=== PATIENT | female | born 1960 | race Caucasian/White ===

== ENCOUNTER 2019-10-25 16:18 | Emergency (ER) | payer MEDICARE, MEDICAID, SELFPAY ==
[2019-10-25] VITALS (14 sets, daily range): BP systolic 139–180; BP diastolic 85–101; PULSE 70–97; RESP 18–20; TEMP 37.1; O2SAT 93–98; BMI 32.4
--- NOTE | 2019-10-25 16:57 | XRR_ITS ---
PROCEDURE INFORMATION: Exam: XR Right Hip with Pelvis when Performed Exam date and time: 10/25/2019 5:00 PM Age: 59 years old Clinical indication: Injury or trauma; Fall; Initial encounter; Blunt trauma (contusions or hematomas); Right; Hip; Additional info: Fall, hip pain TECHNIQUE: Imaging protocol: XR Right hip with pelvis when performed. Views: 1 view. COMPARISON: CT abdomen pelvis w con* [id number] 06/19/2019 12:02 AM FINDINGS: Bones/joints: There is a PLIF at L5-S1. No fracture or dislocation is identified. Soft tissues: Unremarkable. XR/XR hip RT 2-3V wo/w pel* [id number] IMPRESSION: No fracture is identified
--- NOTE | 2019-10-25 17:07 | PC.NURSE ---
xray at bedside
[2019-10-25] MEDS: morphine 4 mg/mL SDV 1 mL IVP (17:23)
[2019-10-25] MEDS: ondansetron 2 mg/ML SDV 2 mL 4 MG IVP (17:23)
[2019-10-25 17:40] LABS: Basophils # 0.1 10^3/uL (0.0-0.1); Basophils % 0.5 %; Eosinophils # 0.1 10^3/uL (0.0-0.8); Eosinophils % 1.5 %; Hematocrit 39.5 % (37.0-47.0); Hemoglobin 13.4 g/dL (11.5-15.3); Lymphocytes # 2.6 10^3/uL (0.8-4.8); Lymphocytes % 27.2 %; Mean Corpuscular HGB Conc 33.9 g/dL (30.0-36.0); Mean Corpuscular Hemoglobin 28.6 pg (28.0-34.0); Mean Corpuscular Volume 84.2 fL (81-99); Mean Platelet Volume 10.6 fL (7.4-10.4); Monocytes # 0.5 10^3/uL (0.2-0.9); Monocytes % 4.9 %; Neutrophils # 6.3 10^3/uL (1.8-7.7); Neutrophils % 65.5 %; Nucleated Red Blood Cells % 0 %; Platelet Count 225 10^3/cmm (130-400); Red Blood Count 4.69 10^6/uL (4.1-5.3); Red Cell Distribution Width 13.2 % (12.1-15.1); White Blood Count 9.6 10^3/uL (4.0-10.0)
[2019-10-25 18:02] LABS: Anion Gap 15.7 (5-19); Blood Urea Nitrogen 8 mg/dL (6-20); Calcium 9.5 mg/Dl (8.6-10.0); Carbon Dioxide 26 mmol/L (22-29); Chloride 98 mmol/L (98-107); Glomerular Filtration Rate 73.9 mL/min (90-130); Glucose 171 mg/dL (74-109); Potassium 3.7 mmol/L (3.5-5.1); Sodium 136 mmol/L (136-145)
--- NOTE | 2019-12-10 11:54 | W.ED.FALL ---
HPI - Fall General: Chief Complaint: Fall Stated Complaint: fall, hip and back pain Time Seen by Provider: 10/25/19 16:57 History of Present Illness: HPI Narrative: 59-year-old female seen for fall. She fell this morning prior to arrival complaining of right knee and right shoulder pain although she is moving her right shoulder without any difficulty. Her bigger concern is her knee. She does take hydrocodone at home for fibromyalgia generalized osteoarthritis. Did not strike her head no loss of consciousness. Associated symptoms-after fall: Denies abdominal pain or chest pain Review of Systems Const: Denies: fever, chills, body aches, change in appetite, fatigue or malaise ENMT: Denies: throat pain, ear pain, nasal discharge or nasal congestion Card: Denies: chest pain, edema, shortness of breath on exertion or shortness of breath when lying down Resp: Denies: shortness of breath, productive cough or non-productive cough GI: Denies: abdominal pain, nausea, vomiting, vomiting blood, coffee grounds in vomit, diarrhea, constipation, bloating, blood in stool or black tarry stool : Denies: flank pain, difficulty urinating, painful urination, urinary frequency or urinary urgency Skin/Breast: Denies: rash or itching PFSH ED PFSH: Family History Family/Other Cancer Colon - Father Breast - Maternal Aunt Denies family history of Diabetes CAD (coronary artery disease) Hypertension Stroke Social History Smoking and tobacco status: current every day smoker cigarettes Packs smoked per day: 1 Alcohol intake: never Marital status: Current occupational status: employed Physical Exam Const: COMMON NORMALS: no apparent distress GENERAL APPEARANCE: cooperative and comfortable ORIENTATION/CONSCIOUSNESS: Yes awake, Yes oriented to person, Yes oriented to place and Yes oriented to time HENMT: COMMON NORMALS: normocephalic, head/scalp atraumatic, hearing grossly normal bilaterally, external ears normal, EAC's normal, TM's normal bilaterally, nasal mucous membranes and turbinates normal, moist oral mucous membranes and oropharynx normal HEAD & SCALP: normocephalic and atraumatic NOSE: nasal mucous membranes and turbinates normal EXTERNAL EAR: Yes external ears normal EXTERNAL AUDITORY CANAL: EAC's normal TYMPANIC MEMBRANE: TM's normal bilaterally Eye: COMMON NORMALS: PERRL, EOMs intact bilaterally, conjunctivae normal and no scleral icterus CONJUNCTIVA: Yes conjunctivae normal PUPIL: Yes PERRL Neck/C-Spine: COMMON NORMALS: full ROM, no lymphadenopathy, supple and no JVD Lymph: LYMPHATIC: no lymphadenopathy noted and no lymphedema noted Resp: COMMON NORMALS: normal respiratory effort, no retractions, no use of accessory muscles and clear to auscultation bilaterally AUSCULTATION: clear to auscultation bilaterally Cardio: COMMON NORMALS: no JVD, regular rate, regular rhythm and no murmurs RATE: regular rate RHYTHM: regular rhythm GI: COMMON NORMALS: soft to palpation and no hepatosplenomegaly AUSCULTATION: Yes normoactive bowel sounds PALPATION: Yes soft, No tender, No guarding and Yes no hepatosplenomegaly Extremity: COMMON NORMALS: normal to inspection, normal capillary refill, no clubbing, cyanosis or edema, no calf tenderness and no pedal edema OTHER: Patient has mild discomfort with palpation of the greater trochanter after x-ray no pain with internal X rotation of the right hip. No deformity. Neuro: SENSORIUM/ORIENTATION: Yes oriented to person, Yes oriented to place and Yes oriented to time Skin: COMMON NORMALS: no rashes or lesions noted GENERAL SKIN EXAM: no rashes or lesions noted Course Vital Signs: Vital signs: Vital Signs Temperature 98.8 F 10/25/19 16:44 Pulse Rate 70 10/25/19 18:18 Respiratory Rate 18 10/25/19 18:18 Blood Pressure 141/88 10/25/19 18:18 Pulse Oximetry 97 10/25/19 18:18 MDM - Fall Lab Data: Labs: Lab Results 10/25/19 10/25/19 Range/Units 17:19 17:19 WBC 9.6 (4.0-10.0) 10^3/ uL RBC 4.69 (4.1-5.3) 10^6/u L Hgb 13.4 (11.5-15.3) g/dL Hct 39.5 (37.0-47.0) % MCV 84.2 (81-99) fL MCH 28.6 (28.0-34.0) pg MCHC 33.9 (30.0-36.0) g/dL RDW 13.2 (12.1-15.1) % Plt Count 225 (130-400) 10^3/c mm MPV 10.6 H (7.4-10.4) fL Neut % (Auto) 65.5 % Lymph % (Auto) 27.2 % [place] % (Auto) 4.9 % Eos % (Auto) 1.5 % Baso % (Auto) 0.5 % Neut # (Auto) 6.3 (1.8-7.7) 10^3/u L Lymph # (Auto) 2.6 (0.8-4.8) 10^3/u L [place] # (Auto) 0.5 (0.2-0.9) 10^3/u L Eos # (Auto) 0.1 (0.0-0.8) 10^3/u L Baso # (Auto) 0.1 (0.0-0.1) 10^3/u L Nucleated RBC % (a uto) 0 % Nucleated RBCs # 0.0 /100WBC Sodium 136 (136-145) mmol/L Potassium 3.7 (3.5-5.1) mmol/L Chloride 98 (98-107) mmol/L Carbon Dioxide 26 (22-29) mmol/L Anion Gap 15.7 (5-19) BUN 8 (6-20) mg/dL Creatinine 0.8 (0.5-0.9) mg/dL GFR Calculation 73.9 L (90-130) mL/min Glucose 171 H (74-109) mg/dL Calcium 9.5 (8.6-10.0) mg/Dl Discharge Plan Discharge Patient Disposition: Home, Self-Care Clinical Impression: Fall Condition: Stable Prescriptions: New diclofenac sodium 75 mg tablet,delayed release (DR/EC) 75 mg PO Q12H PRN (Reason: pain) Qty: 20 RF: 0 No Action fluoxetine 40 mg capsule 40 mg PO QAM RF: 0 albuterol sulfate [Ventolin HFA] 90 mcg/actuation HFA aerosol inhaler 2 puff INHALATION Q6H PRNRF: 0 [place] 30 gm PO ONCE RF: 0 oxycodone 10 mg tablet 10 mg PO TID PRNRF: 0 hydrocodone bitartrate 10 mg capsule, oral only, ER 12hr 10 mg PO TID RF: 0 aspirin 325 mg tablet,delayed release (DR/EC) 325 mg PO BID RF: 0 trazodone 150 mg tablet 150 mg PO ONCE RF: 0 Referrals: Laina Pepper DO [Primary Care Provider] - Discharge Diet: Advance as tolerated Discharge Activity: Resume usual activity Patient Instructions: Back Pain, Joint Pain, Musculoskeletal Pain (ED), Pain Management, Fall Prevention Discharge Date/Time: 10/25/19 18:41 Coding Level of Care Code ED [employer] for Chg Fwd Exam Comprehensive
== END 2019-10-25 18:41 | disposition home or self-care (01) ==
PROVIDERS: Emergency Provider Family Medicine; Family Provider Family Medicine; PCP Family Medicine
DX: M25.561 Pain in right knee (principal); M25.511 Pain in right shoulder; M79.7 Fibromyalgia; F17.210 Nicotine dependence, cigarettes, uncomplicated
CPT/HCPCS: 36415; 73502; 80048; 85025; 96374; 99281; J2270; J2405

== ENCOUNTER → 2019-11-03 13:25 | Outpatient (BNVA) | payer MEDICARE, MEDICAID, SELFPAY | PROVIDERS: Family Provider Family Medicine; PCP Family Medicine; Referring Provider Family Medicine; Visit Provider Specialist | DX: M54.5 Low back pain (principal); G89.29 Other chronic pain; F11.23 Opioid dependence with withdrawal; F17.210 Nicotine dependence, cigarettes, uncomplicated | CPT/HCPCS: 99204; 99214 ==

== ENCOUNTER 2022-01-19 15:34 | Emergency (ER) | payer MEDICARE, MEDICAID, SELFPAY ==
[2022-01-19 15:38] VITALS: BP 155/103; PULSE 95; RESP 16; O2SAT 94; BMI 29.2
--- NOTE | 2022-01-19 15:59 | ED_ITS ---
Documented by User: Nathen Zapata DO 01/23/22 10:02 HPI - Fall General: Chief Complaint: Fall Stated Complaint: FALL Time Seen by Provider: 01/19/22 15:57 Source: patient Mode of arrival: ambulatory History of Present Illness: 61-year-old female presents emergency room with multiple ground-level falls over the last week. She is complaining of weakness particularly in the left arm and leg that began 3 to 4 days ago. She has left lateral rib pain as well. She had some vision and hearing changes although she has difficult time quantifying this. She has no known history of previous stroke. Patient is on Suboxone at this time. She has some peripheral neuropathy as well. She denies chest pain or shortness of breath. MD complaint: fall Onset (ago): week(s) (1) Fall from: standing Fall witnessed: no Place fall occurred: home Loss of consciousness: None Prolonged down time: no Symptoms prior to fall: lightheadedness and dizziness Location of injury: chest (Left ribs) Associated symptoms-after fall: Reports chest pain, difficulty walking and weakness; Denies abdominal pain, confusion, headache(s), hematuria, lightheadedness, neck pain, numbness, short of breath or vertigo Review of Systems Const: Denies: fever(s), chills, body aches, change in appetite, fatigue or malaise ENMT: Denies: throat pain, ear or mastoid pain, nasal discharge or nasal congestion Card: Reports: chest pain; Denies: lightheadedness Resp: Denies: dyspnea, productive cough or non-productive cough GI: Denies: abdominal pain : Denies: flank pain, difficulty voiding, dysuria, urinary frequency, uri nary urgency or hematuria Musc: Denies: neck pain, back pain or extremity pain Skin/Breast: Denies: rash or pruritus Neuro: Reports: difficulty walking; Denies: headache(s), vertigo or confusion PFSH ED PFSH: Medical History (Updated 01/23/22 @ 09:57 by Nathen Zapata DO) Alcoholism /alcohol abuse Asymptomatic microscopic hematuria Calculus of kidney Chronic back pain Diabetes Opiate addiction Surgical History (Updated 01/23/22 @ 09:57 by Nathen Zapata DO) H/O section H/O tubal ligation S/P cholecystectomy Family History Family/Other Cancer Colon - Father Breast - Maternal Aunt Denies family history of Diabetes CAD (coronary artery disease) Hypertension Stroke Social History Smoking and tobacco status: current every day smoker cigarettes Packs smoked per day: 1 Alcohol intake: never Marital status: Current occupational status: employed Physical Exam Const: COMMON NORMALS: no acute distress GENERAL APPEARANCE: cooperative and comfortable ORIENTATION/CONSCIOUSNESS: Yes awake, Yes oriented to person, Yes oriented to place and Yes oriented to time HENMT: COMMON NORMALS: normocephalic, atraumatic and hearing grossly normal bilaterally HEAD & SCALP: normocephalic and atraumatic Neck/C-Spine: COMMON NORMALS: no JVD Resp: COMMON NORMALS: normal respiratory effort, No retractions, No use of accessory muscles and clear to auscultation bilaterally AUSCULTATION: clear to auscultation bilaterally Cardio: COMMON NORMALS: no JVD, regular rate, regular rhythm and No murmurs present (Cardio) RATE: regular rate RHYTHM: regular rhythm GI: COMMON NORMALS: Soft to palpation and No hepatosplenomegaly present AUSCULTATION: Yes normoactive bowel sounds PALPATION: Yes Soft to palpation, No Tenderness to palpation present (GI), No Guarding due to palpation present (GI) and Yes No hepatosplenomegaly present Extremity: COMMON NORMALS: normal to inspection, capillary refill normal, no clubbing, cyanosis or edema, no calf tenderness and no pedal edema Neuro: SENSORIUM/ORIENTATION: Yes oriented to person, Yes oriented to place and Yes oriented to time OTHER: Very subtle left-sided weakness compared to right. Noted in science tutor strength and leg raising while patient can raise the right leg and hold it up for 5 seconds she does seem to have more difficulty with the right than the left. Skin: COMMON NORMALS: no rashes or lesions noted GENERAL SKIN EXAM: no rashes or lesions noted Course Vital Signs: Vital signs: Vital Signs Pulse Rate 82 01/19/22 19:43 Respiratory Rate 17 01/19/22 19:43 Blood Pressure 168/91 01/19/22 19:43 Pulse Oximetry 94 01/19/22 19:43 MDM - Fall Medical Decision Making Care signed out to Dr. Penny at change of shift. See final notes for diagnosis and disposition. Patient care handoff received from Dr. Zapata pending completion of ED evaluation. Laboratory studies notable for unremarkable hematologic and metabolic panel, no obvious cause of patient's symptoms. Head CT without acute intracranial abnormality. Discussed results of ED evaluation with the patient, she expresses concern over her various medical problems however does have reasonable follow-up plan as scheduled. Given the duration of symptoms and findings on head CT the exact etiology of patient's symptoms are unclear however do not appear to need admission at this time. Satisfactory for outpatient management. Paramjit Penny MD Emergency Medicine Medical Records I reviewed the patient's medical records. Lab Data I reviewed the patient's lab results. : 01/19/22 15:57 01/19/22 15:[address] 01/19/22 16:21 IMPRESSION: No acute intracranial abnormality. Laboratory Results WBC 9.3 10^3/uL (4.0-10.0) 01/19/22 15:57 RBC 4.68 10^6/uL (4.1-5.3) 01/19/22 15:57 Hgb 13.9 g/dL (11.5-15.3) 01/19/22 15:57 Hct 41.9 % (37.0-47.0) 01/19/22 15:57 MCV 89.5 fl (81-99) 01/19/22 15:57 MCH 29.7 pg (28.0-34.0) 01/19/22 15:57 MCHC 33.2 g/dL (30.0-36.0) 01/19/22 15:57 RDW 13.2 % (12.1-15.1) 01/19/22 15:57 Plt Count 196 10^3/cmm (130-400) 01/19/22 15:57 MPV 10.1 fL (7.4-10.4) 01/19/22 15:57 Neut % (Auto) 72.4 % 01/19/22 15:57 Lymph % (Auto) 20.6 % 01/19/22 15:57 [place] % (Auto) 4.3 % 01/19/22 15:57 Eos % (Auto) 1.9 % 01/19/22 15:57 Baso % (Auto) 0.3 % 01/19/22 15:57 Neut # (Auto) 6.76 10^3/uL (1.8-7.7) 01/19/22 15:57 Lymph # (Auto) 1.9 10^3/uL (0.8-4.8) 01/19/22 15:57 [place]urt # (Auto) 0.4 10^3/uL (0.2-0.9) 01/19/22 15:57 Eos # (Auto) 0.2 10^3/uL (0.0-0.8) 01/19/22 15:57 Baso # (Auto) 0.0 10^3/uL (0.0-0.1) 01/19/22 15:57 Nucleated RBC % (auto) 0 % 01/19/22 15:57 Nucleated RBCs # 0.0 /100WBC 01/19/22 15:57 Sodium 136 mmol/L (136-145) 01/19/22 15:57 Potassium 3.6 mmol/L (3.5-5.1) 01/19/22 15:57 Chloride 98 mmol/L (98-107) 01/19/22 15:57 Carbon Dioxide 25 mmol/L (22-29) 01/19/22 15:57 Anion Gap 16.6 (5-19) 01/19/22 15:57 BUN 11 mg/dL (6-20) 01/19/22 15:57 Creatinine 0.5 mg/dL (0.5-0.9) 01/19/22 15:57 GFR Calculation 126.3 mL/min (90-130) 01/19/22 15:57 Glucose 230 mg/dL (65-115) H 01/19/22 15:57 Calculated Osmolality 289 mOsm/kg (285-295) 01/19/22 15:57 Calcium 9.2 mg/dL (8.5-10.5) 01/19/22 15:57 Discharge Plan Discharge Patient Disposition: Home Clinical Impression: Weakness, Falls frequently Condition: Stable Prescriptions: No Action fluoxetine 40 mg capsule 40 mg PO QAM 0RF albuterol sulfate [Ventolin HFA] 90 mcg/actuation HFA aerosol inhaler 2 puff INHALATION Q6H PRN (Reason: Shortness Of Breath) 0RF trazodone 150 mg tablet 150 mg PO BEDTIME 0RF tizanidine 4 mg Tablet 4 mg PO Q6H PRN (Reason: Muscle Pain) 0RF pantoprazole 20 mg tablet,delayed release (DR/EC) 20 mg PO DAILY 0RF gabapentin 300 mg Capsule 300 mg PO BID 0RF aspirin 81 mg Tablet,Chewable 81 mg PO DAILY 0RF Suboxone 8-2 mg film 1.5 film sublingual BID 0RF Discharge Orders: Discharge ED (Routine); Ordered 01/19/22 Ordered By: Paramjit Penny Referrals: Laina Pepper DO [Primary Care Provider] - Discharge Diet: Usual diet Discharge Activity: Resume usual activity Patient Instructions: Weakness (ED), Fall Prevention (ED), Opioid Safety Activity Restrictions/Additional Instructions: Thank you for visiting the emergency department. You were seen and evaluated for falls and weakness. The exact cause of your symptoms is unclear. Please follow-up with your primary care provider. Please return to the emergency department for worsening symptoms, any new focal neurologic symptoms, or anything else that you are concerned about and feel needs emergency department evaluation. Coding Level of Care Code ED Audio Visual Aids Director for Chg Fwd NIH stroke score NIHSS Level Of Consciousness - 1a: 0 Level Of Consciousness Questions - 1b: Both Correct Level Of Consciousness Commands - 1c: Both Correct Best Gaze - 2: Normal Visual [place] - 3: No Visual Loss Facial Palsy - 4: Normal Motor Arm Right - 5: No Drift Motor Arm Left - 5: No Drift Motor Leg Right - 6: No Drift Motor Leg Left - 6: No Drift Limb Ataxia - 7: Absent Sensory - 8: Normal Best Language - 9: No Aphasia Dysarthia - 10: Normal Extinction And Inattention - 11: 0 Score Total Score: 0 Documented by User: Paramjit Penny MD 01/22/22 14:01 HPI - Fall General: Chief Complaint: Fall Stated Complaint: FALL Time Seen by Provider: 01/19/22 15:57 History of Present Illness: COUNTS INCLUDE 234 BEDS AT THE [facility] ED PFSH: Medical History (Updated 01/23/22 @ 09:57 by Nathen Zapata DO) Alcoholism /alcohol abuse Asymptomatic microscopic hematuria Calculus of kidney Chronic back pain Diabetes Opiate addiction Surgical History (Updated 01/23/22 @ 09:57 by Nathen Zapata DO) H/O section H/O tubal ligation S/P cholecystectomy Family History Family/Other Cancer Colon - Father Breast - Maternal Aunt Denies family history of Diabetes CAD (coronary artery disease) Hypertension Stroke Social History Smoking and tobacco status: current every day smoker cigarettes Packs smoked per day: 1 Alcohol intake: never Marital status: Current occupational status: employed Course Vital Signs: Vital signs: Vital Signs Pulse Rate 82 01/19/22 19:43 Respiratory Rate 17 01/19/22 19:43 Blood Pressure 168/91 01/19/22 19:43 Pulse Oximetry 94 01/19/22 19:43 MDM - Fall Medical Decision Making Patient care handoff received from Dr. Zapata pending completion of ED evaluation. Laboratory studies notable for unremarkable hematologic and metabolic panel, no obvious cause of patient's symptoms. Head CT without acute intracranial abnormality. Discussed results of ED evaluation with the patient, she expresses concern over her various medical problems however does have reasonable follow-up plan as scheduled. Given the duration of symptoms and findings on head CT the exact etiology of patient's symptoms are unclear however do not appear to need admission at this time. Satisfactory for outpatient management. Paramjit Penny MD Emergency Medicine Lab Data : 01/19/22 15:57 01/19/22 15:[address] 01/19/22 16:21 IMPRESSION: No acute intracranial abnormality. Laboratory Results WBC 9.3 10^3/uL (4.0-10.0) 01/19/22 15:57 RBC 4.68 10^6/uL (4.1-5.3) 01/19/22 15:57 Hgb 13.9 g/dL (11.5-15.3) 01/19/22 15:57 Hct 41.9 % (37.0-47.0) 01/19/22 15:57 MCV 89.5 fl (81-99) 01/19/22 15:57 MCH 29.7 pg (28.0-34.0) 01/19/22 15:57 MCHC 33.2 g/dL (30.0-36.0) 01/19/22 15:57 RDW 13.2 % (12.1-15.1) 01/19/22 15:57 Plt Count 196 10^3/cmm (130-400) 01/19/22 15:57 MPV 10.1 fL (7.4-10.4) 01/19/22 15:57 Neut % (Auto) 72.4 % 01/19/22 15:57 Lymph % (Auto) 20.6 % 01/19/22 15:57 Burt % (Auto) 4.3 % 01/19/22 15:57 Eos % (Auto) 1.9 % 01/19/22 15:57 Baso % (Auto) 0.3 % 01/19/22 15:57 Neut # (Auto) 6.76 10^3/uL (1.8-7.7) 01/19/22 15:57 Lymph # (Auto) 1.9 10^3/uL (0.8-4.8) 01/19/22 15:57 Burt # (Auto) 0.4 10^3/uL (0.2-0.9) 01/19/22 15:57 Eos # (Auto) 0.2 10^3/uL (0.0-0.8) 01/19/22 15:57 Baso # (Auto) 0.0 10^3/uL (0.0-0.1) 01/19/22 15:57 Nucleated RBC % (auto) 0 % 01/19/22 15:57 Nucleated RBCs # 0.0 /100WBC 01/19/22 15:57 Sodium 136 mmol/L (136-145) 01/19/22 15:57 Potassium 3.6 mmol/L (3.5-5.1) 01/19/22 15:57 Chloride 98 mmol/L (98-107) 01/19/22 15:57 Carbon Dioxide 25 mmol/L (22-29) 01/19/22 15:57 Anion Gap 16.6 (5-19) 01/19/22 15:57 BUN 11 mg/dL (6-20) 01/19/22 15:57 Creatinine 0.5 mg/dL (0.5-0.9) 01/19/22 15:57 GFR Calculation 126.3 mL/min (90-130) 01/19/22 15:57 Glucose 230 mg/dL (65-115) H 01/19/22 15:57 Calculated Osmolality 289 mOsm/kg (285-295) 01/19/22 15:57 Calcium 9.2 mg/dL (8.5-10.5) 01/19/22 15:57 Discharge Plan Discharge Patient Disposition: Home Clinical Impression: Weakness, Falls frequently Condition: Stable Prescriptions: No Action fluoxetine 40 mg capsule 40 mg PO QAM 0RF albuterol sulfate [Ventolin HFA] 90 mcg/actuation HFA aerosol inhaler 2 puff INHALATION Q6H PRN (Reason: Shortness Of Breath) 0RF trazodone 150 mg tablet 150 mg PO BEDTIME 0RF tizanidine 4 mg Tablet 4 mg PO Q6H PRN (Reason: Muscle Pain) 0RF pantoprazole 20 mg tablet,delayed release (DR/EC) 20 mg PO DAILY 0RF gabapentin 300 mg Capsule 300 mg PO BID 0RF aspirin 81 mg Tablet,Chewable 81 mg PO DAILY 0RF Suboxone 8-2 mg film 1.5 film sublingual BID 0RF Discharge Orders: Discharge ED (Routine); Ordered 01/19/22 Ordered By: Paramjit Penny Referrals: Laina Pepper DO [Primary Care Provider] - Discharge Diet: Usual diet Discharge Activity: Resume usual activity Patient Instructions: Weakness (ED), Fall Prevention (ED), Opioid Safety Activity Restrictions/Additional Instructions: Thank you for visiting the emergency department. You were seen and evaluated for falls and weakness. The exact cause of your symptoms is unclear. Please follow-up with your primary care provider. Please return to the emergency department for worsening symptoms, any new focal neurologic symptoms, or anything else that you are concerned about and feel needs emergency department evaluation. Coding Level of Care Code ED Audio Visual Aids Director for [place]
--- NOTE | 2022-01-19 16:21 | CTR_ITS ---
PROCEDURE INFORMATION: Exam: CT Head Without Contrast Exam date and time: 01/19/2022 5:15 PM Age: 61 years old Clinical indication: Injury or trauma; Fall; Concussion/head injury; Without loss of consciousness; Additional info: Vision and hearing changes TECHNIQUE: Imaging protocol: Computed tomography of the head without contrast. Radiation optimization: All CT scans at this facility use at least one of these dose optimization techniques: automated exposure control; mA and/or kV adjustment per patient size (includes targeted exams where dose is matched to clinical indication); or iterative reconstruction. COMPARISON: CT head wo con* [id number] 02/23/2019 7:29 PM RADIATION DOSE METRICS: Total DLP (mGy-cm): 951.88 FINDINGS: Brain: Normal. No hemorrhage. Unremarkable white matter. No mass effect. Cerebral ventricles: No ventriculomegaly. Paranasal sinuses: Visualized sinuses are unremarkable. No fluid levels. Mastoid air cells: Visualized mastoid air cells are well aerated. Bones/joints: Unremarkable. No acute fracture. Soft tissues: Unremarkable. CT/CT head wo con* [id number] IMPRESSION: No acute intracranial abnormality.
--- NOTE | 2022-01-19 16:21 | ECG_ITS ---
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 Measurements Intervals [place] Rate: 82 P: 49 IA: 163 QRS: 63 QRSD: 154 T: 14 QT: 407 QTc: 478 Interpretive Statements SINUS RHYTHM INTRAVENTRICULAR CONDUCTION DELAY [130+ ms QRS DURATION] Compared to ECG 09/16/2019 12:01:21 Intraventricular conduction delay now present Right bundle-branch block no longer present Electronically Signed On 01-19-2022 18:06:25 CDT by Geovany Nix M.D. [id number]
[2022-01-19 16:28] LABS: Basophils % 0.3 %; Eosinophils # 0.2 10^3/uL (0.0-0.8); Eosinophils % 1.9 %; Hematocrit 41.9 % (37.0-47.0); Hemoglobin 13.9 g/dL (11.5-15.3); Lymphocytes # 1.9 10^3/uL (0.8-4.8); Lymphocytes % 20.6 %; Mean Corpuscular HGB Conc 33.2 g/dL (30.0-36.0); Mean Corpuscular Hemoglobin 29.7 pg (28.0-34.0); Mean Corpuscular Volume 89.5 fl (81-99); Mean Platelet Volume 10.1 fL (7.4-10.4); Monocytes # 0.4 10^3/uL (0.2-0.9); Monocytes % 4.3 %; Neutrophils # 6.76 10^3/uL (1.8-7.7); Neutrophils % 72.4 %; Nucleated Red Blood Cells % 0 %; Platelet Count 196 10^3/cmm (130-400); Red Blood Count 4.68 10^6/uL (4.1-5.3); Red Cell Distribution Width 13.2 % (12.1-15.1); White Blood Count 9.3 10^3/uL (4.0-10.0)
[2022-01-19 16:34] VITALS: BP 162/83; PULSE 85; RESP 16; O2SAT 94
[2022-01-19 16:52] LABS: Blood Urea Nitrogen 11 mg/dL (6-20); Calcium 9.2 mg/dL (8.5-10.5); Carbon Dioxide 25 mmol/L (22-29); Chloride 98 mmol/L (98-107); Glomerular Filtration Rate 126.3 mL/min (90-130); Glucose 230 mg/dL (65-115); Osmolality Calculated 289 mOsm/kg (285-295); Sodium 136 mmol/L (136-145)
[2022-01-19 16:57] LABS: Anion Gap 16.6 (5-19); Potassium 3.6 mmol/L (3.5-5.1)
[2022-01-19 19:43] VITALS: BP 168/91; PULSE 82; RESP 17; O2SAT 94
== END 2022-01-19 19:35 | disposition home or self-care (01) ==
PROVIDERS: Family Medicine; Emergency Provider Emergency Medicine; PCP Family Medicine
DX: R53.1 Weakness (principal); F17.210 Nicotine dependence, cigarettes, uncomplicated; R29.6 Repeated falls; Z79.82 Long term (current) use of aspirin
CPT/HCPCS: 70450; 80048; 85025; 93005; 99283

== ENCOUNTER 2022-04-27 20:37 | Emergency (ER) | payer MEDICARE, MEDICAID, SELFPAY ==
[2022-04-27 21:28] VITALS: BP 130/79; PULSE 80; RESP 18; TEMP 36.7; O2SAT 94; BMI 30.4
--- NOTE | 2022-04-27 21:30 | ED_ITS ---
Documented by User: Elisabeth Pena MD 04/27/22 22:56 HPI - General Adult General: Chief complaint: Back Pain/Injury Stated complaint: BACK PAIN Time Seen by Provider: 04/27/22 21:28 History of Present Illness: Patient is a 61-year-old female history of chronic alcohol abuse, renal colic, diabetes who presents the emergency room for evaluation of new onset of right-sided chest pain and back pain since 4 PM in the setting of ongoing diarrhea for the last 3 days, cough, generalized weakness and body aches. Patient tells me that 3 days ago, patient began having lower abdominal pain followed by mild dysuria. Patient denies that this feels like a previous prior history of kidney stones. Patient tells me that since then, he she has been feeling weak and has had diarrhea for the last 2 days. Patient denies any melena hematochezia. Patient denies any vaginal discharge. Patient tells me that since 2 days ago, she has had cough, generalized weakness malaise and nasal congestion. Earlier today around 4 PM, patient suddenly began developing right-sided chest pain with radiation to the back. Patient denies there is it is atraumatic. Patient has had 2 episode of fall in the last week. Patient denies any injuries to the head or injury to the area where she is having the pain. In terms of patient's chest pain, patient reports that it is pleuritic in nature, sudden onset and associate with shortness of breath. Onset:3 days ago Duration:3 days Location:home Severity:moderate Associated symptoms: Reports chest pain (+R sided chest pain), dyspnea and malaise; Deny nausea, rash, palpitations or vomiting Review of Systems Const: Reports: chills, body aches, fatigue, malaise and other (+generalized weakness); Denies: fever(s) Eyes: Denies: change in vision ENMT: Denies: mouth pain Card: Reports: chest pain (+R sided chest pain); Denies: palpitations Resp: Reports: dyspnea; Denies: non-productive cough GI: Reports: abdominal pain and diarrhea; Denies: nausea or vomiting : Reports: dysuria Musc: Denies: extremity pain Skin/Breast: Denies: rash or new lesions Neuro: Denies: weakness in extremities Psych: Reports: other (Normal mood) John/Lymph: Denies: easy bruising PFS ED PFSH: Medical History Alcoholism /alcohol abuse Asymptomatic microscopic hematuria Calculus of kidney Chronic back pain Diabetes Opiate addiction Surgical History H/O section H/O tubal ligation S/P cholecystectomy Family History Family/Other Cancer Colon - Father Breast - Maternal Aunt Denies family history of Diabetes CAD (coronary artery disease) Hypertension Stroke Social History Smoking and tobacco status: current every day smoker cigarettes Packs smoked per day: 1 Alcohol intake: never Marital status: Current occupational status: employed Physical Exam Const: COMMON NORMALS: alert HENMT: COMMON NORMALS: atraumatic HEAD & SCALP: atraumatic MOUTH: moist mucous membranes abnormal Eye: COMMON NORMALS: EOMs intact bilaterally and conjunctivae normal CONJUNCTIVA: Yes conjunctivae normal Neck/C-Spine: COMMON NORMALS: full ROM and supple Resp: COMMON NORMALS: normal respiratory effort and clear to auscultation bilaterally AUSCULTATION: clear to auscultation bilaterally Cardio: COMMON NORMALS: regular rate RATE: regular rate GI: COMMON NORMALS: Soft to palpation PALPATION: Yes Soft to palpation OTHER: +mild b/l lower abdominal TTP. NO guarding rebound, guarding, rigidity. No CVA tenderness to percussion. Neg Mauro/Neg McBurney's point tenderness, no suprabupic tenderness to palpation. Extremity: COMMON NORMALS: full ROM Neuro: SENSORIUM/ORIENTATION: Yes alert MOTOR EXAM: No Abnormal motor st rength present and Other motor observations present (no focal motor deficits) Psych: COMMON NORMALS: speech normal SPEECH: Yes normal speech MOOD & AFFECT: Yes euthymic mood Course Vital Signs: Vital signs: Vital Signs Temperature 98.0 F 04/27/22 21:28 Pulse Rate 80 04/28/22 02:55 Respiratory Rate 18 04/28/22 02:55 Blood Pressure 138/71 04/28/22 02:55 Pulse Oximetry 94 04/28/22 02:55 Oxygen Delivery Me thod 04/28/22 00:35 Oxygen Flow Rate 0 04/28/22 02:12 MDM - General Adult Medical Decision Making 61-year-old female with history of chronic alcohol dependence, renal colic, diabetes presenting to the emergency room with concerns of acute onset of pleuritic right-sided chest pain with radiation to the back in the setting of ongoing dysuria, lower abdominal pain, generalized weakness, cough, body aches for the last 3 days. On physical exam, patient is afebrile, hemodynamically stable. Patient has mild lower abdominal tenderness to palpation. Patient has no guarding or rebound tenderness. Patient is afebrile with white count 5.4. Patient's COVID antigen positive. In setting of COVID and new onset of pleuritic chest pain, this is concerning for acute PE. Patient has some allergies to contrast in the past. Patient denies having any anaphylactic reaction. Patient received Benadryl and Solu-Medrol. Pending CTA at this time. Case signed out to Dr. Penny. Lab Data : 04/27/22 22:15 04/27/22 22:15 Radiology Impressions Chest X-Ray 04/27/22 22:56 IMPRESSION: No acute findings. Stable appearance of the chest compared with 09/16/2019. Chest/Abdomen/Pelvis CT 04/27/22 22:58 IMPRESSION: 1. There is no evidence for pulmonary emboli. 2. Subtle ground-glass opacities in the hemithoraces bilaterally could represent atelectasis versus mild pneumonitis. IMPRESSION: 1. Fatty infiltration of the liver. Irregular hypoattenuation is seen in the left hepatic lobe adjacent to the falciform fissure possibly representing focal fatty infiltration perhaps a benign hemangioma. 2. Normal appendix 3. No evidence for ureteral obstruction 4. Nondilated fluid-filled duodenum and jejunum could represent mild ileus. Laboratory Results WBC 5.4 10^3/uL (4.0-10.0) 04/27/22 22:15 RBC 4.94 10^6/uL (4.1-5.3) 04/27/22 22:15 Hgb 13.9 g/dL (11.5-15.3) 04/27/22 22:15 Hct 42.8 % (37.0-47.0) 04/27/22 22:15 MCV 86.6 fl (81-99) 04/27/22 22:15 MCH 28.1 pg (28.0-34.0) 04/27/22 22:15 MCHC 32.5 g/dL (30.0-36.0) 04/27/22 22:15 RDW 13.1 % (12.1-15.1) 04/27/22 22:15 Plt Count 165 10^3/cmm (130-400) 04/27/22 22:15 MPV 10.4 fL (7.4-10.4) 04/27/22 22:15 Neut % (Auto) 64.9 % 04/27/22 22:15 Lymph % (Auto) 26.0 % 04/27/22 22:15 Pershing % (Auto) 8.0 % 04/27/22 22:15 Eos % (Auto) 0.7 % 04/27/22 22:15 Baso % (Auto) 0.2 % 04/27/22 22:15 Neut # (Auto) 3.50 10^3/uL (1.8-7.7) 04/27/22 22:15 Lymph # (Auto) 1.4 10^3/uL (0.8-4.8) 04/27/22 22:15 Pershing # (Auto) 0.4 10^3/uL (0.2-0.9) 04/27/22 22:15 Eos # (Auto) 0.0 10^3/uL (0.0-0.8) 04/27/22 22:15 Baso # (Auto) 0.0 10^3/uL (0.0-0.1) 04/27/22 22:15 Nucleated RBC % (auto) 0 % 04/27/22 22:15 Nucleated RBCs # 0.0 /100WBC 04/27/22 22:15 Sodium 135 mmol/L (136-145) L 04/27/22 22:15 Potassium 3.7 mmol/L (3.5-5.1) 04/27/22 22:15 Chloride 99 mmol/L (98-107) 04/27/22 22:15 Carbon Dioxide 17 mmol/L (22-29) L 04/27/22 22:15 Anion Gap 22.7 (5-19) H 04/27/22 22:15 BUN 14 mg/dL (6-20) 04/27/22 22:15 Creatinine 0.6 mg/dL (0.5-0.9) 04/27/22 22:15 GFR Calculation 102.3 mL/min (90-130) 04/27/22 22:15 Glucose 82 mg/dL (65-115) 04/27/22 22:15 Calculated Osmolality 280 mOsm/kg (285-295) L 04/27/22 22:15 Calcium 8.8 mg/dL (8.5-10.5) 04/27/22 22:15 Total Bilirubin 0.3 mg/dL (0.15-1.2) 04/27/22 22:15 AST 31 U/L (0-32) 04/27/22 22:15 ALT 26 U/L (0-33) 04/27/22 22:15 Alkaline Phosphatase 88 IU/L (35-105) 04/27/22 22:15 Troponin T Baseline 17 ng/L (0-10) H 04/27/22 22:15 Total Protein 6.8 g/dL (6.6-8.7) 04/27/22 22:15 Albumin 4.3 g/dL (3.5-5.2) 04/27/22 22:15 Globulin 2.5 g/dL (1.3-4.6) 04/27/22 22:15 Urine Color Yellow (Yellow) 04/27/22 22:15 Urine Appearance Clear (CLEAR) 04/27/22 22:15 Urine pH 5 (5-7) 04/27/22 22:15 Ur Specific [place] 1.015 (1.005-1.030) 04/27/22 22:15 Urine Protein Neg (Negative) 04/27/22 22:15 Urine Glucose (UA) 4+ (Normal) H 04/27/22 22:15 Urine Ketones 3+ (Negative) H 04/27/22 22:15 Urine Blood Neg (Negative) 04/27/22 22:15 Urine Nitrate Negative (Negative) 04/27/22 22:15 Urine Bilirubin Neg (Negative) 04/27/22 22:15 Urine Urobilinogen Norm mg/dL (Negative) 04/27/22 22:15 Ur Leukocyte Esterase Trace (Negative) H 04/27/22 22:15 Urine RBC 0-4 /hpf (0-2) H 04/27/22 22:15 Urine WBC 0-4 /hpf (0-5) H 04/27/22 22:15 Ur Squamous Epith Cells 0-4 /hpf (0-5) H 04/27/22 22:15 Amorphous Sediment Not Reportable 04/27/22 22:15 Urine Bacteria Trace /hpf (NONE) 04/27/22 22:15 Influenza Type A Ag Negative (Negative) 04/27/22 22:00 Influenza Type B Ag Negative (Negative) 04/27/22 22:00 SARS-CoV-2 Ag (Rapid) Positive (Negative) H 04/27/22 22:00 Discharge Plan Discharge Patient Disposition: Home Clinical Impression: Cough, Pleuritic chest pain, Diarrhea, Dehydration, COVID-19 Condition: Stable Prescriptions: New Decadron 6 mg tablet 6 mg PO Q24H Qty: 10 0RF Rx Instructions: for up to 10 days Paxlovid (EUA) 150 mg x 2- 100 mg tablet See Rx Instructions .ROUTE .COMPLEX Qty: 6 0RF Rx Instructions: orally per package directions ondansetron 4 mg tablet,disintegrating 4 mg PO Q8H PRN (Reason: nausea and vomiting) Qty: 15 0RF No Action fluoxetine 40 mg capsule 40 mg PO QAM albuterol sulfate [Ventolin HFA] 90 mcg/actuation HFA aerosol inhaler 2 puff INHALATION Q6H PRN (Reason: Shortness Of Breath) trazodone 150 mg tablet 150 mg PO BEDTIME tizanidine 4 mg Tablet 4 mg PO Q6H PRN (Reason: Muscle Pain) pantoprazole 20 mg tablet,delayed release (DR/EC) 20 mg PO DAILY gabapentin 300 mg Capsule 300 mg PO BID aspirin 81 mg Tablet,Chewable 81 mg PO DAILY Suboxone 8-2 mg film 1.5 film sublingual BID Discharge Orders: Discharge ED (Routine); Ordered 04/28/22 Ordered By: Paramjit Penny Referrals: Laina Pepper DO [Primary Care Provider] - Discharge Diet: Usual diet Discharge Activity: Increase activity as tolerated Patient Instructions: Nirmatrelvir/Ritonavir (By mouth) (Paxlovid), Dehydration (ED), Ileus (ED), COVID-19 (Coronavirus Disease 2019) (ED) Activity Restrictions/Additional Instructions: Thank you for visiting the emergency department. You were seen and evaluated for generalized symptoms. The most likely cause of your symptoms is COVID-19. You were found to have dehydration. Please ensure that you are staying hydrated. Please return to the emergency department for significantly worsening symptoms or anything else that you are concerned about and feel needs emergency department evaluation. Sign Out Sign Out Data: Patient Sign Out occurred on 04/27/22 at 23:15. Patient's care was discussed, and care was transferred from to Paramjit Penny MD. Coding Level of Care Code ED Radiation Therapy Technician for Chg Fwd Exam Comprehensive Documented by User: Paramjit Penny MD 05/09/22 21:05 HPI - General Adult General: Chief complaint: Back Pain/Injury Stated complaint: BACK PAIN Time Seen by Provider: 04/27/22 21:28 [facility] ED PFSH: Medical History Alcoholism /alcohol abuse Asymptomatic microscopic hematuria Calculus of kidney Chronic back pain Diabetes Opiate addiction Surgical History H/O section H/O tubal ligation S/P cholecystectomy Family History Family/Other Cancer Colon - Father Breast - Maternal Aunt Denies family history of Diabetes CAD (coronary artery disease) Hypertension Stroke Social History Smoking and tobacco status: current every day smoker cigarettes Packs smoked per day: 1 Alcohol intake: never Marital status: Current occupational status: employed Course Vital Signs: Vital signs: Vital Signs Temperature 98.0 F 04/27/22 21:28 Pulse Rate 80 04/28/22 02:55 Respiratory Rate 18 04/28/22 02:55 Blood Pressure 138/71 04/28/22 02:55 Pulse Oximetry 94 04/28/22 02:55 Oxygen Delivery Me thod 04/28/22 00:35 Oxygen Flow Rate 0 04/28/22 02:12 [facility] - General Adult Medical Decision Making 61-year-old female with history of chronic alcohol dependence, renal colic, diabetes presenting to the emergency room with concerns of acute onset of pleuritic right-sided chest pain with radiation to the back in the setting of ongoing dysuria, lower abdominal pain, generalized weakness, cough, body aches for the last 3 days. On physical exam, patient is afebrile, hemodynamically stable. Patient has mild lower abdominal tenderness to palpation. Patient has no guarding or rebound tenderness. Patient is afebrile with white count 5.4. Patient's COVID antigen positive. In setting of COVID and new onset of pleuritic chest pain, this is concerning for acute PE. Patient has some allergies to contrast in the past. Patient denies having any anaphylactic reaction. Patient received Benadryl and Solu-Medrol. Pending CTA at this time. Case signed out to Dr. Penny. Patient care handoff received from Dr. Pena pending completion of ED evaluation. Laboratory studies were reviewed and possible dehydration essentially unremarkable. COVID-positive. Ketones likely positive from dehydration/starvation ketosis. No evidence of PE on CTA. Mild ileus noted. Discussed results of ED evaluation with the patient. She is comfortable with discharge plan. She tolerated p.o. intake. Return precautions given. Paramjit Penny MD Emergency Medicine Lab Data : 04/27/22 22:15 04/27/22 22:15 Radiology Impressions Chest X-Ray 04/27/22 22:56 IMPRESSION: No acute findings. Stable appearance of the chest compared with 09/16/2019. Chest/Abdomen/Pelvis CT 04/27/22 22:58 IMPRESSION: 1. There is no evidence for pulmonary emboli. 2. Subtle ground-glass opacities in the hemithoraces bilaterally could represent atelectasis versus mild pneumonitis. IMPRESSION: 1. Fatty infiltration of the liver. Irregular hypoattenuation is seen in the left hepatic lobe adjacent to the falciform fissure possibly representing focal fatty infiltration perhaps a benign hemangioma. 2. Normal appendix 3. No evidence for ureteral obstruction 4. Nondilated fluid-filled duodenum and jejunum could represent mild ileus. Laboratory Results WBC 5.4 10^3/uL (4.0-10.0) 04/27/22 22:15 RBC 4.94 10^6/uL (4.1-5.3) 04/27/22 22:15 Hgb 13.9 g/dL (11.5-15.3) 04/27/22 22:15 Hct 42.8 % (37.0-47.0) 04/27/22 22:15 MCV 86.6 fl (81-99) 04/27/22 22:15 MCH 28.1 pg (28.0-34.0) 04/27/22 22:15 MCHC 32.5 g/dL (30.0-36.0) 04/27/22 22:15 RDW 13.1 % (12.1-15.1) 04/27/22 22:15 Plt Count 165 10^3/cmm (130-400) 04/27/22 22:15 MPV 10.4 fL (7.4-10.4) 04/27/22 22:15 Neut % (Auto) 64.9 % 04/27/22 22:15 Lymph % (Auto) 26.0 % 04/27/22 22:15 Pershing % (Auto) 8.0 % 04/27/22 22:15 Eos % (Auto) 0.7 % 04/27/22 22:15 Baso % (Auto) 0.2 % 04/27/22 22:15 Neut # (Auto) 3.50 10^3/uL (1.8-7.7) 04/27/22 22:15 Lymph # (Auto) 1.4 10^3/uL (0.8-4.8) 04/27/22 22:15 Pershing # (Auto) 0.4 10^3/uL (0.2-0.9) 04/27/22 22:15 Eos # (Auto) 0.0 10^3/uL (0.0-0.8) 04/27/22 22:15 Baso # (Auto) 0.0 10^3/uL (0.0-0.1) 04/27/22 22:15 Nucleated RBC % (auto) 0 % 04/27/22 22:15 Nucleated RBCs # 0.0 /100WBC 04/27/22 22:15 Sodium 135 mmol/L (136-145) L 04/27/22 22:15 Potassium 3.7 mmol/L (3.5-5.1) 04/27/22 22:15 Chloride 99 mmol/L (98-107) 04/27/22 22:15 Carbon Dioxide 17 mmol/L (22-29) L 04/27/22 22:15 Anion Gap 22.7 (5-19) H 04/27/22 22:15 BUN 14 mg/dL (6-20) 04/27/22 22:15 Creatinine 0.6 mg/dL (0.5-0.9) 04/27/22 22:15 GFR Calculation 102.3 mL/min (90-130) 04/27/22 22:15 Glucose 82 mg/dL (65-115) 04/27/22 22:15 Calculated Osmolality 280 mOsm/kg (285-295) L 04/27/22 22:15 Calcium 8.8 mg/dL (8.5-10.5) 04/27/22 22:15 Total Bilirubin 0.3 mg/dL (0.15-1.2) 04/27/22 22:15 AST 31 U/L (0-32) 04/27/22 22:15 ALT 26 U/L (0-33) 04/27/22 22:15 Alkaline Phosphatase 88 IU/L (35-105) 04/27/22 22:15 Troponin T Baseline 17 ng/L (0-10) H 04/27/22 22:15 Total Protein 6.8 g/dL (6.6-8.7) 04/27/22 22:15 Albumin 4.3 g/dL (3.5-5.2) 04/27/22 22:15 Globulin 2.5 g/dL (1.3-4.6) 04/27/22 22:15 Urine Color Yellow (Yellow) 04/27/22 22:15 Urine Appearance Clear (CLEAR) 04/27/22 22:15 Urine pH 5 (5-7) 04/27/22 22:15 Ur Specific [place] 1.015 (1.005-1.030) 04/27/22 22:15 Urine Protein Neg (Negative) 04/27/22 22:15 Urine Glucose (UA) 4+ (Normal) H 04/27/22 22:15 Urine Ketones 3+ (Negative) H 04/27/22 22:15 Urine Blood Neg (Negative) 04/27/22 22:15 Urine Nitrate Negative (Negative) 04/27/22 22:15 Urine Bilirubin Neg (Negative) 04/27/22 22:15 Urine Urobilinogen Norm mg/dL (Negative) 04/27/22 22:15 Ur Leukocyte Esterase Trace (Negative) H 04/27/22 22:15 Urine RBC 0-4 /hpf (0-2) H 04/27/22 22:15 Urine WBC 0-4 /hpf (0-5) H 04/27/22 22:15 Ur Squamous Epith Cells 0-4 /hpf (0-5) H 04/27/22 22:15 Amorphous Sediment Not Reportable 04/27/22 22:15 Urine Bacteria Trace /hpf (NONE) 04/27/22 22:15 Influenza Type A Ag Negative (Negative) 04/27/22 22:00 Influenza Type B Ag Negative (Negative) 04/27/22 22:00 SARS-CoV-2 Ag (Rapid) Positive (Negative) H 04/27/22 22:00 Discharge Plan Discharge Patient Disposition: Home Clinical Impression: Cough, Pleuritic chest pain, Diarrhea, Dehydration, COVID-19 Condition: Stable Prescriptions: New Decadron 6 mg tablet 6 mg PO Q24H Qty: 10 0RF Rx Instructions: for up to 10 days Paxlovid (EUA) 150 mg x 2- 100 mg tablet See Rx Instructions .ROUTE .COMPLEX Qty: 6 0RF Rx Instructions: orally per package directions ondansetron 4 mg tablet,disintegrating 4 mg PO Q8H PRN (Reason: nausea and vomiting) Qty: 15 0RF No Action fluoxetine 40 mg capsule 40 mg PO QAM albuterol sulfate [Ventolin HFA] 90 mcg/actuation HFA aerosol inhaler 2 puff INHALATION Q6H PRN (Reason: Shortness Of Breath) trazodone 150 mg tablet 150 mg PO BEDTIME tizanidine 4 mg Tablet 4 mg PO Q6H PRN (Reason: Muscle Pain) pantoprazole 20 mg tablet,delayed release (DR/EC) 20 mg PO DAILY gabapentin 300 mg Capsule 300 mg PO BID aspirin 81 mg Tablet,Chewable 81 mg PO DAILY Suboxone 8-2 mg film 1.5 film sublingual BID Discharge Orders: Discharge ED (Routine); Ordered 04/28/22 Ordered By: Paramjit Penny Referrals: Laina Pepper DO [Primary Care Provider] - Discharge Diet: Usual diet Discharge Activity: Increase activity as tolerated Patient Instructions: Nirmatrelvir/Ritonavir (By mouth) (Paxlovid), Dehydration (ED), Ileus (ED), COVID-19 (Coronavirus Disease 2019) (ED) Activity Restrictions/Additional Instructions: Thank you for visiting the emergency department. You were seen and evaluated f or generalized symptoms. The most likely cause of your symptoms is COVID-19. You were found to have dehydration. Please ensure that you are staying hydrated. Please return to the emergency department for significantly worsening symptoms or anything else that you are concerned about and feel needs emergency department evaluation. Sign Out Sign Out Data: Patient Sign Out occurred on 04/27/22 at 23:15. Patient's care was discussed, and care was transferred from to Paramjit Penny MD. Coding Level of Care Code ED Radiation Therapy Technician for [place] Fwd Exam Comprehensive
--- NOTE | 2022-04-27 21:44 | ECG_ITS ---
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 Measurements Intervals [place] Rate: 69 P: 53 GA: 152 QRS: 56 QRSD: 141 T: 20 QT: 448 QTc: 481 Interpretive Statements SINUS RHYTHM POSSIBLE LEFT ATRIAL ENLARGEMENT [-0.1mV P-WAVE IN V1/V2] INTRAVENTRICULAR CONDUCTION DELAY [130+ ms QRS DURATION] Compared to ECG 01/19/2022 16:31:44 No significant changes Electronically Signed On 04-28-2022 20:30:44 CDT by Geovany Nix M.D. [id number]
[2022-04-27 22:20] LABS: Basophils % 0.2 %; Eosinophils % 0.7 %; Hematocrit 42.8 % (37.0-47.0); Hemoglobin 13.9 g/dL (11.5-15.3); Lymphocytes # 1.4 10^3/uL (0.8-4.8); Mean Corpuscular HGB Conc 32.5 g/dL (30.0-36.0); Mean Corpuscular Hemoglobin 28.1 pg (28.0-34.0); Mean Corpuscular Volume 86.6 fl (81-99); Mean Platelet Volume 10.4 fL (7.4-10.4); Monocytes # 0.4 10^3/uL (0.2-0.9); Neutrophils % 64.9 %; Nucleated Red Blood Cells % 0 %; Platelet Count 165 10^3/cmm (130-400); Red Blood Count 4.94 10^6/uL (4.1-5.3); Red Cell Distribution Width 13.1 % (12.1-15.1); White Blood Count 5.4 10^3/uL (4.0-10.0)
[2022-04-27 22:34] LABS: Influenza A by IFA Negative (Negative); Influenza B by IFA Negative (Negative); SARS Covid-2 Antigen Positive (Negative)
[2022-04-27 22:53] LABS: Alanine Aminotransferase 26 U/L (0-33); Albumin Level 4.3 g/dL (3.5-5.2); Alkaline Phosphatase 88 IU/L (35-105); Blood Urea Nitrogen 14 mg/dL (6-20); Calcium 8.8 mg/dL (8.5-10.5); Carbon Dioxide 17 mmol/L (22-29); Chloride 99 mmol/L (98-107); Globulin 2.5 g/dL (1.3-4.6); Glomerular Filtration Rate 102.3 mL/min (90-130); Glucose 82 mg/dL (65-115); Osmolality Calculated 280 mOsm/kg (285-295); Sodium 135 mmol/L (136-145); Total Bilirubin 0.3 mg/dL (0.15-1.2); Total Protein 6.8 g/dL (6.6-8.7)
[2022-04-27 22:54] LABS: Troponin(5th) Baseline 17 ng/L (0-10)
[2022-04-27] MEDS: sodium chloride 0.9% 1,000 ML 999 ML IV (22:56)
--- NOTE | 2022-04-27 22:56 | XRR_ITS ---
PROCEDURE INFORMATION: Exam: XR Chest Exam date and time: 04/27/2022 11:03 PM Age: 61 years old Clinical indication: Angina; Additional info: R sided chest pain TECHNIQUE: Imaging protocol: Radiologic exam of the chest. Views: 1 view. COMPARISON: CR Chest 1 [place] [id number] 09/16/2019 10:06 AM FINDINGS: Lungs: Unremarkable. No consolidation. Pleural spaces: Unremarkable. No pleural effusion. No pneumothorax. Heart/Mediastinum: Unremarkable. No cardiomegaly. Bones/joints: Unremarkable. XR/XR chest 1V portable [id number] IMPRESSION: No acute findings. Stable appearance of the chest compared with 09/16/2019.
--- NOTE | 2022-04-27 22:58 | CTR_ITS ---
PROCEDURE INFORMATION: Exam: CTA Chest With Contrast Exam date and time: 04/27/2022 11:42 PM Age: 61 years old Clinical indication: Other: Diarrhea/ dysuria; Abdominal pain; Localized; Pleuordynia; Prior surgery; Surgery type: Gb. Csection. Tubal ligation. Patient HX: Cough with pleuritic chest pain. Lower abd pain with diarrhea and dysuria. Covid +; Additional info: Pleuritic chest pain, covid, abd pain, diarrhea TECHNIQUE: Imaging protocol: Computed tomographic angiography of the chest with contrast. 3D rendering (Not supervised by radiologist): MIP and/or 3D reconstructed images were created by the technologist. Radiation optimization: All CT scans at this facility use at least one of these dose optimization techniques: automated exposure control; mA and/or kV adjustment per patient size (includes targeted exams where dose is matched to clinical indication); or iterative reconstruction. Contrast material: VISI 320; Contrast volume: 95 ml; Contrast route: INTRAVENOUS (IV); COMPARISON: CR (CHEST, ) 04/27/2022 11:03 PM RADIATION DOSE METRICS: Total DLP (mGy-cm): 1748.33 FINDINGS: Pulmonary arteries: Normal. No pulmonary emboli. Aorta: Unremarkable. No aortic aneurysm. No aortic dissection. Lungs: There are some subtle ground-glass opacity seen in the hemithoraces bilaterally, findings could represent pneumonitis or atelectasis. Pleural spaces: Unremarkable. No pneumothorax. No pleural effusion. Heart: Unremarkable. No cardiomegaly. No pericardial effusion. Lymph nodes: Unremarkable. No enlarged lymph nodes. Bones/joints: Unremarkable. No acute fracture. Soft tissues: Unremarkable. PROCEDURE INFORMATION: Exam: CT Abdomen And Pelvis With Contrast Exam date and time: 04/27/2022 11:42 PM Age: 61 years old Clinical indication: Other: Diarrhea/ dysuria; Abdominal pain; Localized; Pleuordynia; Prior surgery; Surgery type: Gb. Csection. Tubal ligation. Patient HX: Cough with pleuritic chest pain. Lower abd pain with diarrhea and dysuria. Covid +; Additional info: Pleuritic chest pain, covid, abd pain, diarrhea TECHNIQUE: Imaging protocol: Computed tomography of the abdomen and pelvis with contrast. Radiation optimization: All CT scans at this facility use at least one of these dose optimization techniques: automated exposure control; mA and/or kV adjustment per patient size (includes targeted exams where dose is matched to clinical indication); or iterative reconstruction. Contrast material: VISI 320; Contrast volume: 95 ml; Contrast route: INTRAVENOUS (IV); COMPARISON: CT abdomen pelvis w con* [id number] 06/19/2019 12:02 AM RADIATION DOSE METRICS: Total DLP (mGy-cm): 1748.33 FINDINGS: Liver: There is hypoattenuation of the hepatic parenchyma compatible with fatty infiltration. An irregular hypoattenuation lesions seen in the left hepatic lobe adjacent to the falciform fissure measuring 2.1 x 1.6 x 2.0 cm possibly representing focal fatty infiltration or perhaps a hemangioma. Gallbladder and bile ducts: Status post cholecystectomy. The common bile duct is prominent measuring 10.5 mm is midportion tapering to normal caliber within the pancreas. Pancreas: Normal. No ductal dilation. Spleen: Normal. No splenomegaly. Adrenal glands: Normal. No mass. Kidneys and ureters: Normal. No hydronephrosis. Stomach and bowel: Nondilated fluid-filled duodenum and jejunum is seen, findings that could represent mild ileus. Appendix: The appendix is visualized and is normal in configuration. Intraperitoneal space: Unremarkable. No free air. No significant fluid collection. Vasculature: Unremarkable. No abdominal aortic aneurysm. Lymph nodes: Unremarkable. No enlarged lymph nodes. Urinary bladder: Unremarkable as visualized. Reproductive: Unremarkable as visualized. Bones/joints: Status post PLIF L5-S1 placement a prosthetic disc spacer. Soft tissues: Unremarkable. CT/CT angio chest w abd pel w con IMPRESSION: 1. There is no evidence for pulmonary emboli. 2. Subtle ground-glass opacities in the hemithoraces bilaterally could represent atelectasis versus mild pneumonitis. IMPRESSION: 1. Fatty infiltration of the liver. Irregular hypoattenuation is seen in the left hepatic lobe adjacent to the falciform fissure possibly representing focal fatty infiltration perhaps a benign hemangioma. 2. Normal appendix 3. No evidence for ureteral obstruction 4. Nondilated fluid-filled duodenum and jejunum could represent mild ileus.
[2022-04-27 23:00] LABS: Anion Gap 22.7 (5-19); Aspartate Amino Transferase 31 U/L (0-32); Potassium 3.7 mmol/L (3.5-5.1)
[2022-04-27 23:16] LABS: Add Urine Microscopic? YES; Bilirubin Urine Neg (Negative); Blood Urine Neg (Negative); Glucose Urine UA 4+ (Normal); Ketones Urine 3+ (Negative); Leukocyte Esterase Urine Trace (Negative); Nitrate Urine Negative (Negative); Protein Urine Neg (Negative); Specific Gravity, Urine 1.015 (1.005-1.030); Urine Appearance Clear (CLEAR); Urine Color Yellow (Yellow); Urobilinogen Urine Norm (Negative); pH Urine 5 (5-7)
[2022-04-27 23:21] LABS: Add Urine Culture? No; Bacteria Urine TRACE /hpf; RBC Urine 0-4 /hpf (0-2); Squamous Epithelial Cell Urine 0-4 /hpf (0-5); WBC Urine 0-4 /hpf (0-5)
[2022-04-27] MEDS: diphenhydrAMINE 50 mg/mL SDV 1mL IVP (23:23)
[2022-04-27] MEDS: LORazepam 1 mg Tablet PO (23:23)
--- NOTE | 2022-04-27 23:44 | ECG_ITS ---
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 Measurements Intervals [place] Rate: 61 P: 59 [place]: 152 QRS: 68 QRSD: 154 T: 31 QT: 476 QTc: 480 Interpretive Statements SINUS RHYTHM POSSIBLE LEFT ATRIAL ENLARGEMENT [-0.1mV P-WAVE IN V1/V2] INTRAVENTRICULAR CONDUCTION DELAY [130+ ms QRS DURATION] Compared to ECG 04/27/2022 22:03:11 No significant changes Electronically Signed On 04-28-2022 20:47:18 CDT by Geovany Nix M.D. [id number]
[2022-04-28] MEDS: iodixanol 320 mg/mL 100mL Btl IV
[2022-04-28 00:35] VITALS: BP 132/78; PULSE 60; RESP 18; O2SAT 96
[2022-04-28 02:12] VITALS: O2SAT 96
[2022-04-28 02:55] VITALS: BP 138/71; PULSE 80; RESP 18; O2SAT 94
== END 2022-04-28 02:57 | disposition home or self-care (01) ==
PROVIDERS: Emergency Medicine; Emergency Provider Emergency Medicine; PCP Family Medicine
DX: R07.89 Other chest pain (principal); R05.9 Cough, unspecified; R19.7 Diarrhea, unspecified; E11.9 Type 2 diabetes mellitus without complications; F17.210 Nicotine dependence, cigarettes, uncomplicated; U07.1 COVID-19
CPT/HCPCS: 71045; 71275; 74177; 80053; 81001; 84484; 85025; 87426; 87804; 93005; 96361; 96374; 96375; 99285; J1200; J2930; J7030; Q9967

== ENCOUNTER 2023-02-18 13:32 | Emergency (ER) | payer MEDICARE, MEDICAID, SELFPAY ==
[2023-02-18 13:40] VITALS: BP 158/94; PULSE 106; TEMP 36.7; O2SAT 95; BMI 31.1
--- NOTE | 2023-02-18 13:47 | ECG_ITS ---
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 Measurements Intervals [place] Rate: 104 P: 129 [place]: 149 QRS: 120 QRSD: 144 T: -6 QT: 357 QTc: 470 Interpretive Statements ECTOPIC ATRIAL TACHYCARDIA LEFT ATRIAL ENLARGEMENT [-0.15mV P-WAVE IN V1/V2] Right bundle branch block pattern [130+ ms QRS DURATION] Compared to ECG 04/28/2022 01:11:11 Sinus rhythm no longer present Electronically Signed On 02-18-2023 21:09:54 CDT by Bettye Tai M.D. [id number]
--- NOTE | 2023-02-18 13:55 | XRR_ITS ---
PROCEDURE INFORMATION: Exam: XR Chest Exam date and time: 02/18/2023 2:12 PM Age: 62 years old Clinical indication: Pain; Chest pressure; Additional info: Cp TECHNIQUE: Imaging protocol: Radiologic exam of the chest. Views: 1 view. COMPARISON: CR XR chest 1V portable [id number] 04/27/2022 11:03 PM FINDINGS: Lungs: Hyperinflation and interstitial prominence. Pleural spaces: No pleural effusion. Heart/Mediastinum: Epicardial fat, without cardiomegaly. Bones/joints: Mild degenerative change. When correlating with the previous study, no significant interval changes are present. XR/XR chest 1V portable [id number] IMPRESSION: Hyperinflation and interstitial prominence.
--- NOTE | 2023-02-18 14:03 | CTR_ITS ---
PROCEDURE INFORMATION: Exam: CT Head Without Contrast Exam date and time: 02/18/2023 2:18 PM Age: 62 years old Clinical indication: Numbness / parasthesia; Additional info: Paresthesia TECHNIQUE: Imaging protocol: Computed tomography of the head without contrast. Radiation optimization: All CT scans at this facility use at least one of these dose optimization techniques: automated exposure control; mA and/or kV adjustment per patient size (includes targeted exams where dose is matched to clinical indication); or iterative reconstruction. REPORTING DATA: Count of CT and Cardiac NM exams in prior 12 months: This patient has received [address] and 0 known cardiac nuclear medicine studies in the 12 months prior to the current study. COMPARISON: CT head wo con* [id number] 01/19/2022 5:15 PM RADIATION DOSE METRICS: Total DLP (mGy-cm): 1083.75 FINDINGS: Brain: Symmetric caliber of the cortical sulci. No acute cortical infarct, mass effect, or intracranial hemorrhage. Cerebral ventricles: Normal configuration of the ventricles. Paranasal sinuses: No sinus fluid. Mastoid air cells: No mastoid effusion. Bones/joints: No acute calvarial pathology. Soft tissues: Unremarkable soft tissues. CT/CT head wo con* [id number] IMPRESSION: No acute intracranial pathology.
--- NOTE | 2023-02-18 14:07 | W.ED.CHESTPA ---
HPI - Chest Pain General: Chief Complaint: Chest Pain Stated Complaint: right side numb/sob Time Seen by Provider: 02/18/23 13:55 Source: patient Mode of arrival: ambulatory Limitations: no limitations History of Present Illness: He [id number] female is here with multiple complaints. She states it started over a week ago when she started having numbness to her right side of her face her right arm and her right leg. States the numbness seems to come and go states it is gotten better in her legs but is worse in her hand. Been having pain in her extremities all over. She states that 3 days ago she started having some chest pain states she is also had some abdominal pain as well. She states that today she has developed a headache as well. She states that she has felt off balance at times when she walks. She denies any shortness of breath denies any worsening proving factors. Associated symptoms: Reports abdominal pain; Deny dyspnea, fever(s), nausea or vomiting Review of Systems Const: Denies: fever(s), chills, body aches or change in appetite Eyes: Denies: blurry vision or eye discomfort ENMT: Denies: throat pain or dental pain Card: Reports: chest pain Resp: Denies: dyspnea GI: Reports: abdominal pain; Denies: nausea, vomiting or diarrhea : Denies: dysuria Musc: Denies: neck pain or back pain Skin/Breast: Denies: rash Neuro: Reports: headache(s), numbness in extremities and weakness in extremities Psych: Denies: depression John/Lymph: Denies: easy bruising All/Imm: Denies: urticaria PFSH ED PFSH: Medical History Alcoholism /alcohol abuse Asymptomatic microscopic hematuria Calculus of kidney Chronic back pain Diabetes Opiate addiction Surgical History H/O section H/O tubal ligation S/P cholecystectomy Family History Family/Other Cancer Colon - Father Breast - Maternal Aunt Denies family history of Diabetes CAD (coronary artery disease) Hypertension Stroke Social History Smoking and tobacco status: current every day smoker cigarettes Packs smoked per day: 1 Alcohol intake: never Substance/Drug Use: never Marital status: Current occupational status: employed Physical Exam Const: COMMON NORMALS: no acute distress, patient oriented x3 and healthy appearing HENMT: COMMON NORMALS: normocephalic and atraumatic HEAD & SCALP: normocephalic and atraumatic Eye: COMMON NORMALS: Equal, round and reactive pupils present and EOMs intact bilaterally PUPIL: Yes Equal, round and reactive pupils present Neck/C-Spine: COMMON NORMALS: full ROM and supple Chest: COMMONS NORMALS: normal inspection of the chest and normal palpation of entire chest wall Resp: COMMON NORMALS: normal respiratory effort, No retractions, No use of accessory muscles and clear to auscultation bilaterally AUSCULTATION: clear to auscultation bilaterally Cardio: COMMON NORMALS: regular rate, regular rhythm and No murmurs present (Cardio) RATE: regular rate RHYTHM: regular rhythm GI: COMMON NORMALS: Normal to inspection, nondistended, normoactive bowel sounds present, Soft to palpation, non-tender and no masses PALPATION: Yes Soft to palpation Extremity: COMMON NORMALS: normal to inspection and full ROM Neuro: COMMON NORMALS: patient oriented x3, moves all extremities and no focal motor deficits CRANIAL NERVES: Yes CN normal except as noted SPEECH: speech normal GAIT: Yes Normal gait present MOTOR EXAM: 5/5 motor strength present throughout Psych: COMMON NORMALS: mental status grossly normal, Normal thought process present and cooperative THOUGHT PROCESS: Normal thought process present Skin: COMMON NORMALS: no rashes or lesions noted and no wounds GENERAL SKIN EXAM: no rashes or lesions noted Course Vital Signs: Vital signs: Vital Signs Temperature 98.1 F 02/18/23 13:40 Pulse Rate 106 H 02/18/23 13:40 Blood Pressure 158/94 02/18/23 13:40 Pulse Oximetry 98 02/18/23 14:24 Oxygen Delivery Me thod Room Air 02/18/23 14:24 MDM - Chest Pain Medical Decision Making Patient presents with multiple complaints that could be related to her diabetes she did not know that she is diabetic states she been told she is prediabetic her hemoglobin A1c here was 9.7 glucose 409 did give her insulin we will start her on glipizide as she states she cannot take metformin. She is no signs of a stroke her symptoms have improved here head CT is normal her troponins here are normal as well she is stable for discharge she is to follow-up with PCP and return if worsening she understands agrees to plan. Medical Records I reviewed the patient's medical records. Lab Data I reviewed the patient's lab results. 02/18/23 14:15 02/18/23 14:15 Radiology Impressions Chest X-Ray 02/18/23 13:55 IMPRESSION: Hyperinflation and interstitial prominence. Head CT 02/18/23 14:03 IMPRESSION: No acute intracranial pathology. Laboratory Results WBC 9.5 10^3/uL (4.0-10.0) 02/18/23 14:15 RBC 5.15 10^6/uL (4.1-5.3) 02/18/23 14:15 Hgb 15.5 g/dL (11.5-15.3) H 02/18/23 14:15 Hct 44.7 % (37.0-47.0) 02/18/23 14:15 MCV 86.8 fl (81-99) 02/18/23 14:15 MCH 30.1 pg (28.0-34.0) 02/18/23 14:15 MCHC 34.7 g/dL (30.0-36.0) 02/18/23 14:15 RDW 12.7 % (12.1-15.1) 02/18/23 14:15 Plt Count 236 10^3/cmm (130-400) 02/18/23 14:15 MPV 10.7 fL (7.4-10.4) H 02/18/23 14:15 Neut % (Auto) 61.2 % 02/18/23 14:15 Lymph % (Auto) 29.8 % 02/18/23 14:15 [place] % (Auto) 6.3 % 02/18/23 14:15 Eos % (Auto) 1.8 % 02/18/23 14:15 Baso % (Auto) 0.4 % 02/18/23 14:15 Neut # (Auto) 5.80 10^3/uL (1.8-7.7) 02/18/23 14:15 Lymph # (Auto) 2.8 10^3/uL (0.8-4.8) 02/18/23 14:15 [place] # (Auto) 0.6 10^3/uL (0.2-0.9) 02/18/23 14:15 Eos # (Auto) 0.2 10^3/uL (0.0-0.8) 02/18/23 14:15 Baso # (Auto) 0.0 10^3/uL (0.0-0.1) 02/18/23 14:15 Nucleated RBC % (auto) 0 % 02/18/23 14:15 Nucleated RBCs # 0.0 /100WBC 02/18/23 14:15 PT 12.20 SECONDS (12.1-14.9) 02/18/23 14:15 INR 0.88 (0.8-1.2) 02/18/23 14:15 Sodium 133 mmol/L (136-145) L 02/18/23 14:15 Potassium 4.4 mmol/L (3.5-5.1) 02/18/23 14:15 Chloride 95 mmol/L (98-107) L 02/18/23 14:15 Carbon Dioxide 23 mmol/L (22-29) 02/18/23 14:15 Anion Gap 19.4 (5-19) H 02/18/23 14:15 BUN 30 mg/dL (8-23) H 02/18/23 14:15 Creatinine 1.0 mg/dL (0.5-0.9) H 02/18/23 14:15 GFR Calculation 56.6 mL/min (90-130) L 02/18/23 14:15 Glucose 409 mg/dL (65-115) H 02/18/23 14:15 Estimat Average Glucose 232 02/18/23 14:15 Hemoglobin A1c 9.7 % (4.0-6.0) H 02/18/23 14:15 Calculated Osmolality 299 mOsm/kg (285-295) H 02/18/23 14:15 Calcium 10.2 mg/dL (8.5-10.5) 02/18/23 14:15 Total Bilirubin 0.3 mg/dL (0.15-1.2) 02/18/23 14:15 AST 13 U/L (0-32) 02/18/23 14:15 ALT 19 U/L (0-33) 02/18/23 14:15 Alkaline Phosphatase 107 U/L (35-105) H 02/18/23 14:15 Troponin T Baseline 11 ng/L (0-10) H 02/18/23 14:15 Troponin T 120 Minute 11.78 ng/L (0-10) H 02/18/23 16:07 Delta Troponin T 0.78 ABS# (0-10) 02/18/23 16:07 Total Protein 7.8 g/dL (6.6-8.7) 02/18/23 14:15 Albumin 4.9 g/dL (3.5-5.2) 02/18/23 14:15 Globulin 2.9 g/dL (1.3-4.6) 02/18/23 14:15 Lipase 151 U/L (13-60) H 02/18/23 14:15 EKG Data EKG 1: I personally reviewed and interpreted this EKG as follows: EKG interpretation date: 02/18/23 EKG interpretation time: 13:47 Interpretation: sinus tach hr [address] or t wave abnormalities qrs 144 qtc 417 EKG 2: I personally reviewed and interpreted this EKG as follows: EKG interpretation date: 02/18/23 EKG interpretation time: 16:11 Interpretation: nsr hr [address] or t wave abnormalities qrs 146 qtc 426 Discharge Plan Discharge Patient Disposition: Home Clinical Impression: Chest pain, Paresthesia, Hyperglycemia Condition: Stable Prescriptions: New glipizide 5 mg tablet 5 mg PO BID Qty: 60 0RF No Action albuterol sulfate [Ventolin HFA] 90 mcg/actuation HFA aerosol inhaler 2 puff INHALATION Q6H PRN (Reason: Shortness Of Breath) tizanidine 4 mg Tablet 4 mg PO BEDTIME gabapentin 300 mg Capsule 300 mg PO DAILY aspirin 81 mg Tablet,Chewable 81 mg PO .UP TO TID PRN (Reason: Headache) baclofen 10 mg Tablet 10 mg PO BEDTIME PRN (Reason: Muscle Spasm) ibuprofen 200 mg Tablet 800 mg PO DAILY Lasix 20 mg Tablet 20 mg PO DAILY melatonin 10 mg Tablet 10 mg PO BEDTIME Discharge Orders: Discharge ED (Routine); Ordered 02/18/23 Ordered By: Lino Farias Referrals: Laina Pepper DO [Primary Care Provider] - 1-3 days Discharge Diet: Advance as tolerated Discharge Activity: Resume usual activity Patient Instructions: Hyperglycemia, Chest Pain (ED), Paresthesia (ED) Coding Level of Care Code 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
[2023-02-18] MEDS: ondansetron 2 mg/ML SDV 2 mL 4 MG IVP (14:18)
[2023-02-18] MEDS: ketorolac 30 mg/mL INJ 15 MG IVP (14:18)
[2023-02-18 14:24] VITALS: O2SAT 98
[2023-02-18 14:29] LABS: Basophils % 0.4 %; Eosinophils # 0.2 10^3/uL (0.0-0.8); Eosinophils % 1.8 %; Hematocrit 44.7 % (37.0-47.0); Hemoglobin 15.5 g/dL (11.5-15.3); Lymphocytes # 2.8 10^3/uL (0.8-4.8); Lymphocytes % 29.8 %; Mean Corpuscular HGB Conc 34.7 g/dL (30.0-36.0); Mean Corpuscular Hemoglobin 30.1 pg (28.0-34.0); Mean Corpuscular Volume 86.8 fl (81-99); Mean Platelet Volume 10.7 fL (7.4-10.4); Monocytes # 0.6 10^3/uL (0.2-0.9); Monocytes % 6.3 %; Neutrophils % 61.2 %; Nucleated Red Blood Cells % 0 %; Platelet Count 236 10^3/cmm (130-400); Red Blood Count 5.15 10^6/uL (4.1-5.3); Red Cell Distribution Width 12.7 % (12.1-15.1); White Blood Count 9.5 10^3/uL (4.0-10.0)
[2023-02-18 14:41] LABS: INR 0.88 (0.8-1.2)
[2023-02-18 15:01] LABS: Alanine Aminotransferase 19 U/L (0-33); Albumin Level 4.9 g/dL (3.5-5.2); Alkaline Phosphatase 107 U/L (35-105); Anion Gap 19.4 (5-19); Aspartate Amino Transferase 13 U/L (0-32); Blood Urea Nitrogen 30 mg/dL (8-23); Calcium 10.2 mg/dL (8.5-10.5); Carbon Dioxide 23 mmol/L (22-29); Chloride 95 mmol/L (98-107); Globulin 2.9 g/dL (1.3-4.6); Glomerular Filtration Rate 56.6 mL/min (90-130); Glucose 409 mg/dL (65-115); Lipase 151 U/L (13-60); Osmolality Calculated 299 mOsm/kg (285-295); Potassium 4.4 mmol/L (3.5-5.1); Sodium 133 mmol/L (136-145); Total Bilirubin 0.3 mg/dL (0.15-1.2); Total Protein 7.8 g/dL (6.6-8.7)
[2023-02-18 15:02] LABS: Troponin(5th) Baseline 11 ng/L (0-10)
--- NOTE | 2023-02-18 15:03 | PC.PHAR ---
pt states she stop taking all of her medications a long time ago-pt states she restarted taking some of her old medications and husbands medications a week ago-pt states for the last 3 days she has been taking her husbands lasix 20mg daily-pt states she has been taking 81mg aspirin up to tid prn headaches-pt states she has been taking baclofen 10mg hs prn ext med history doesnt show when last filled-pt states been taking gabapentin 300mg daily ext shows last filled 300mg tid prn filled 05/12/22 30d/s-tizanidine 4mg hs ext shows last filled 08/15/22 22d/s 4mg q6h prn-pt states not taken jardiance 25mg daily filled 08/15/22 30d/-suboxone 1.5 film bid filled 05/17/22 or trazodone 75mg hs filled -prozac 40mg qam filled 08/15/22 60d/s or buspar 30mg bid filled 08/15/22 30d/s in a long time
[2023-02-18] MEDS: insulin regular-human 100 units/1 mL 6 UNIT IVP (15:53)
[2023-02-18] MEDS: sodium chloride 0.9% 1,000 ML 999 ML IV (15:56)
[2023-02-18 16:09] LABS: Estmated Average Glucose 232; Hemoglobin A1C 9.7 % (4.0-6.0)
--- NOTE | 2023-02-18 16:11 | ECG_ITS ---
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 Measurements Intervals [place] Rate: 99 P: 58 NM: 144 QRS: 67 QRSD: 146 T: 1 QT: 370 QTc: 476 Interpretive Statements SINUS RHYTHM POSSIBLE LEFT ATRIAL ENLARGEMENT [-0.1mV P-WAVE IN V1/V2] INTRAVENTRICULAR CONDUCTION DELAY [130+ ms QRS DURATION] Compared to ECG 02/18/2023 13:47:40 No significant changes Electronically Signed On 02-20-2023 0:22:41 CDT by Bettye Tai M.D. [id number]
[2023-02-18 16:44] LABS: Troponin 5 2HR 11.78 ng/L (0-10)
[2023-02-18 16:52] LABS: Troponin 5 2HR Delta 0.78 ABS# (0-10)
[2023-02-19 09:00] LABS: Glucose Point of Care 359 mg/dL (70-110)
== END 2023-02-18 17:10 | disposition home or self-care (01) ==
PROVIDERS: Emergency Provider Emergency Medicine; PCP Family Medicine
DX: R07.9 Chest pain, unspecified (principal); R20.2 Paresthesia of skin; Z79.82 Long term (current) use of aspirin; F17.210 Nicotine dependence, cigarettes, uncomplicated; E11.65 Type 2 diabetes mellitus with hyperglycemia
CPT/HCPCS: 36415; 36416; 70450; 71045; 80053; 82962; 83036; 83690; 84484; 85025; 85610; 93005; 96374; 96375; 99285; J1815; J1885; J2405; J7030